=== PATIENT | male | born 1980 | race American Indian/Alaskan Native ===

== ENCOUNTER 2021-06-03 12:03 | Emergency (ER) | payer BC ==
--- NOTE | 2021-06-03 13:25 | Event Note ---
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 Further treatment and workup at subsequent clinical providers discretion. Patient/guardian urged not to elope from the ED as their condition may be serious if not clinically assessed and managed. Initial orders include: ro uri/vte/acs
[2021-06-03] MEDS ORDERED: ALBUTEROL 2.5 MG/3 ML NEBU IH ONE (13:27)
--- NOTE | 2021-06-03 13:27 | XRay Report ---
CHEST 2 VIEWS INDICATION / CLINICAL INFORMATION: cough. COMPARISON: None available. FINDINGS: SUPPORT DEVICES: None. HEART / MEDIASTINUM: No significant abnormality. LUNGS / PLEURA: No significant pulmonary or pleural abnormality. No pneumothorax. ADDITIONAL FINDINGS: No significant additional findings. IMPRESSION: 1. No active cardiopulmonary disease. Signer Name: Ramesh Nunez II, MD Signed: 06/03/2021 1:20 PM Workstation Name: [id number]
[2021-06-03 13:56] LABS: Basophils # (Auto) 0.1 K/mm3 (0.0-0.1); Basophils % (Auto) 0.7 % (0.0-1.8); Eosinophils # (Auto) 0.1 K/mm3 (0.0-0.4); Eosinophils % (Auto) 1.6 % (0.0-4.3); Hematocrit 46.5 % (35.5-45.6); Hemoglobin 15.6 gm/dl (11.8-15.2); Lymphocytes # (Auto) 2.1 K/mm3 (1.2-5.4); Lymphocytes % (Auto) 26.5 % (13.4-35.0); Mean Corpuscular HGB Conc 34 % (32-34); Mean Corpuscular Volume 96 fl (84-94); Monocytes # (Auto) 1.2 K/mm3 (0.0-0.8); Monocytes % (Auto) 14.9 % (0.0-7.3); Platelet Count 176 K/mm3 (140-440); Red Blood Count 4.85 M/mm3 (3.65-5.03); Red Cell Distribution Width 13.9 % (13.2-15.2)
[2021-06-03 14:06] LABS: INR 0.84 (0.87-1.13)
[2021-06-03 14:07] LABS: Partial Thromboplastin Time 30.7 Sec. (24.2-36.6)
[2021-06-03 14:10] LABS: Alanine Aminotransferase 36 units/L (7-56); Albumin 4.5 g/dL (3.9-5); BUN/Creatinine Ratio 9; Blood Urea Nitrogen 8 mg/dL (9-20); Calcium 9.8 mg/dL (8.4-10.2); Hemolysis Index 3
[2021-06-03 16:50] LABS: Mucus,Urine 3+ /HPF
[2021-06-03] MEDS ORDERED: IPRATROPIUM/ALBUTEROL SULFATE 3 ML AMPUL.NEB IH ONE (16:56)
[2021-06-03] MEDS ORDERED: predniSONE 20 MG TAB PO ONE (16:56)
[2021-06-03 16:59] LABS: Bilirubin,Urine NEG (Negative); Blood,Urine NEG (Negative); Color,Urine Amber (Yellow); Sperm,Urine FEW /HPF (NP); Urobilinogen,Urine < 2.0 mg/dL (<2.0)
--- NOTE | 2021-06-03 18:32 | Emergency Department Report ---
- General Chief Complaint: Dyspnea/Respdistress Stated Complaint: SENT BY [facility] FOR EVAL Time Seen by Provider: 06/03/21 13:24 Source: patient Mode of arrival: Ambulatory Limitations: No Limitations - History of Present Illness Initial Comments: 41-year-old male with a past medical history of PE/DVT diagnosed several years ago currently on Xarelto, smoker, and a childhood history of asthma presents to the hospital complaining of 4 days of mild headache, throat discomfort, headache, fever, and generalized body aches. Patient is unvaccinated for Covid. He was noted to have wheezing upon arrival and did receive some relief with nebs prior to my evaluation. - Related Data Previous Rx's Medication Instructions Recorded Last Taken Type ALBUTEROL NEB's [Proventil 0.083% 2.5 mg IH TID PRN #30 neb 06/03/21 Unknown Rx NEBS] Albuterol Sulfate [Proventil Hfa] 6.7 gm IH Q4HR PRN #1 inh 06/03/21 Unknown Rx Azithromycin [Zithromax Z-LORI] 1 dose PO DAILY 5 Days tab 06/03/21 Unknown Rx guaiFENesin/DEXTROMETHORPHAN 1 each PO BID PRN #20 tab 06/03/21 Unknown Rx [Mucinex DM ER 600-30 mg TAB] predniSONE [Deltasone] 40 mg PO QDAY 4 Days tab 06/03/21 Unknown Rx Allergies Allergy/AdvReac Type Severity Reaction Status Date / Time No Known Allergies Allergy Unverified 06/03/21 12:52 ED Review of Systems ROS: Stated complaint: SENT BY [facility] FOR EVAL Other details as noted in HPI Comment: All other systems reviewed and negative ED Past Medical Hx - Medications Home Medications: Home Medications Medication Instructions Recorded Confirmed Last Taken Type ALBUTEROL NEB's [Proventil 0.083% 2.5 mg IH TID PRN #30 neb 06/03/21 Unknown Rx NEBS] Albuterol Sulfate [Proventil Hfa] 6.7 gm IH Q4HR PRN #1 inh 06/03/21 Unknown Rx Azithromycin [Zithromax Z-LORI] 1 dose PO DAILY 5 Days tab 06/03/21 Unknown Rx guaiFENesin/DEXTROMETHORPHAN 1 each PO BID PRN #20 tab 06/03/21 Unknown Rx [Mucinex DM ER 600-30 mg TAB] predniSONE [Deltasone] 40 mg PO QDAY 4 Days tab 06/03/21 Unknown Rx ED Physical Exam - General Limitations: No Limitations - Other Other exam information: General: No acute distress Head: Atraumatic Eyes: normal appearance Neck: Normal appearance, no midline tenderness Chest: Residual mild wheezing right base CV: Regular rate and rhythm Abdomen: Soft, normal bowel sounds, nontender, nondistended, no rebound or guarding Back: Normal inspection Extremity: Normal inspection, full range of motion, no calf tenderness or leg edema Neuro: Alert O x 3, no facial asymmetry, speech clear, no gross motor sensory deficit Psych: Appropriate behavior Skin: No rash ED Course Vital Signs 06/03/21 06/03/21 06/03/21 12:56 12:58 13:50 Temperature 98.5 F Pulse Rate 99 H Pulse Rate [ 84 Bilateral] Respiratory 18 Rate Respiratory 16 Rate [Bilateral ] Blood Pressure 140/86 [Right] O2 Sat by Pulse 96 Oximetry ED Medical Decision Making - Lab Data Result diagrams: 06/03/21 13:27 06/03/21 13:27 Lab Results 06/03/21 06/03/21 06/03/21 Range/Units 13:27 13:27 13:27 WBC 8.0 (4.5-11.0) K/mm3 RBC 4.85 (3.65-5.03) M/mm3 Hgb 15.6 H (11.8-15.2) gm/dl Hct 46.5 H (35.5-45.6) % MCV 96 H (84-94) fl MCH 32 (28-32) pg MCHC 34 (32-34) % RDW 13.9 (13.2-15.2) % Plt Count 176 (140-440) K/mm3 Lymph % (Auto) 26.5 (13.4-35.0) % Stephenson % (Auto) 14.9 H (0.0-7.3) % Eos % (Auto) 1.6 (0.0-4.3) % Baso % (Auto) 0.7 (0.0-1.8) % Lymph # (Auto) 2.1 (1.2-5.4) K/mm3 Stephenson # (Auto) 1.2 H (0.0-0.8) K/mm3 Eos # (Auto) 0.1 (0.0-0.4) K/mm3 Baso # (Auto) 0.1 (0.0-0.1) K/mm3 Seg Neutrophils % 56.3 (40.0-70.0) % Seg Neutrophils # 4.5 (1.8-7.7) K/mm3 PT 12.5 (12.2-14.9) Sec. INR 0.84 L (0.87-1.13) APTT 30.7 (24.2-36.6) Sec. Sodium 135 L (137-145) mmol/L Potassium 4.1 (3.6-5.0) mmol/L Chloride 96.9 L (98-107) mmol/L Carbon Dioxide 24 (22-30) mmol/L Anion Gap 18 mmol/L BUN 8 L (9-20) mg/dL Creatinine 0.9 (0.8-1.3) mg/dL Estimated GFR > 60 ml/min BUN/Creatinine Ratio 9 % Glucose 121 H (75-100) mg/dL Calcium 9.8 (8.4-10.2) mg/dL Total Bilirubin 0.50 (0.1-1.2) mg/dL AST 38 (5-40) units/L ALT 36 (7-56) units/L Alkaline Phosphatase 67 (35-129) units/L Troponin T < 0.010 (0.00-0.029) ng/mL Total Protein 8.5 H (6.3-8.2) g/dL Albumin 4.5 (3.9-5) g/dL Albumin/Globulin Ratio 1.1 % Urine Color (Yellow) Urine Turbidity (Clear) Urine pH (5.0-7.0) Ur Specific [place] (1.003-1.030) Urine Protein (Negative) mg/dL Urine Glucose (UA) (Negative) mg/dL Urine Ketones (Negative) mg/dL Urine Blood (Negative) Urine Nitrite (Negative) Ur Reducing Substances Urine Bilirubin (Negative) Urine Ictotest Urine Urobilinogen (<2.0) mg/dL Ur Leukocyte Esterase (Negative) Urine WBC (Auto) (0.0-6.0) /HPF Urine RBC (Auto) (0.0-6.0) /HPF U Epithel Cells (Auto) (0-13.0) /HPF Urine Mucus /HPF Urine Sperm ([employer]) /HPF Influenza A (Rapid) (Negative) Influenza B (Rapid) (Negative) 06/03/21 06/03/21 Range/Units Unknown Unknown WBC (4.5-11.0) K/mm3 RBC (3.65-5.03) M/mm3 Hgb (11.8-15.2) gm/dl Hct (35.5-45.6) % MCV (84-94) fl MCH (28-32) pg MCHC (32-34) % RDW (13.2-15.2) % Plt Count (140-440) K/mm3 Lymph % (Auto) (13.4-35.0) % Stephenson % (Auto) (0.0-7.3) % Eos % (Auto) (0.0-4.3) % Baso % (Auto) (0.0-1.8) % Lymph # (Auto) (1.2-5.4) K/mm3 Stephenson # (Auto) (0.0-0.8) K/mm3 Eos # (Auto) (0.0-0.4) K/mm3 Baso # (Auto) (0.0-0.1) K/mm3 Seg Neutrophils % (40.0-70.0) % Seg Neutrophils # (1.8-7.7) K/mm3 PT (12.2-14.9) Sec. INR (0.87-1.13) APTT (24.2-36.6) Sec. Sodium (137-145) mmol/L Potassium (3.6-5.0) mmol/L Chloride (98-107) mmol/L Carbon Dioxide (22-30) mmol/L Anion Gap mmol/L BUN (9-20) mg/dL Creatinine (0.8-1.3) mg/dL Estimated GFR ml/min BUN/Creatinine Ratio % Glucose (75-100) mg/dL Calcium (8.4-10.2) mg/dL Total Bilirubin (0.1-1.2) mg/dL AST (5-40) units/L ALT (7-56) units/L Alkaline Phosphatase (35-129) units/L Troponin T (0.00-0.029) ng/mL Total Protein (6.3-8.2) g/dL Albumin (3.9-5) g/dL Albumin/Globulin Ratio % Urine Color Ayesha (Yellow) Urine Turbidity Clear (Clear) Urine pH 5.0 (5.0-7.0) Ur Specific [place] 1.032 H (1.003-1.030) Urine Protein 100 mg/dl (Negative) mg/dL Urine Glucose (UA) Neg (Negative) mg/dL Urine Ketones Tr (Negative) mg/dL Urine Blood Neg (Negative) Urine Nitrite Neg (Negative) Ur Reducing Substances Not Reportable Urine Bilirubin Neg (Negative) Urine Ictotest Not Reportable Urine Urobilinogen < 2.0 (<2.0) mg/dL Ur Leukocyte Esterase Neg (Negative) Urine WBC (Auto) 4.0 (0.0-6.0) /HPF Urine RBC (Auto) 2.0 (0.0-6.0) /HPF U Epithel Cells (Auto) 5.0 (0-13.0) /HPF Urine Mucus 3+ /HPF Urine Sperm Few ([employer]) /HPF Influenza A (Rapid) Negative (Negative) Influenza B (Rapid) Negative (Negative) - EKG Data -: EKG Interpreted by Sc EKG shows normal: sinus rhythm, ST-T waves (No STEMI) Rate: tachycardia (101) - Radiology Data Radiology results: report reviewed (Chest x-ray: No acute finding) - Medical Decision Making 41-year-old male presents to the hospital with viral symptoms. No signs of hypoxia, infiltrate, and flu test negative. Patient is unvaccinated with Covid pending test with results available tomorrow. He will be treated symptomatically for viral infection/bronchitis with wheezing, and with a Z-Lori. Patient received bronchodilators and steroids in the ED with improvement in symptoms Critical Care Time: No Critical care attestation.: If time is entered above; I have spent that time in minutes in the direct care of this critically ill patient, excluding procedure time. ED Disposition Clinical Impression: Viral syndrome, Acute bronchitis Disposition: 01 HOME / SELF CARE / HOMELESS Is pt being admited?: No Does the pt Need Aspirin: No Condition: Stable Instructions: Viral Illness, Adult, How to Use a Metered Dose Inhaler, Acute Bronchitis (ED), Acute Bronchitis, Adult, Steps to Quit Smoking Additional Instructions: Take the medication as prescribed. Follow-up with your doctor or doctor/clinic provided. Return if symptoms worsen as indicated by your discharge instructions. Follow up regarding your outpatient covid test Prescriptions: predniSONE [Deltasone] 40 mg PO QDAY 4 Days tab guaiFENesin/DEXTROMETHORPHAN [Mucinex DM ER 600-30 mg TAB] 1 each PO BID PRN #20 tab PRN Reason: Cough ALBUTEROL NEB's [Proventil 0.083% NEBS] 2.5 mg IH TID PRN #30 neb PRN Reason: Wheezing Albuterol Sulfate [Proventil Hfa] 6.7 gm IH Q4HR PRN #1 inh PRN Reason: Wheezing Azithromycin [Zithromax Z-LORI] 1 dose PO DAILY 5 Days tab Referrals: PRIMARY CARE, [Primary Care Provider] - 3-[address] [facility] [Provider Group] - 3-5 Days Forms: Work/School Release Form(ED) Time of Disposition: 18:33
[2021-06-03 19:04] VITALS: BP 140/80
--- NOTE | 2021-06-04 10:26 | Electrocardiograph Report ---
[facility] Test Date: 2021-06-03 Test Time: 16:15:31 Pat Name: MONIQUE PHILLIPS Department: Room: Gender: M Biological Chemist: NW : 1980 Requested By: RUBI NICKERSON Order Number: [id number] Reading MD: Leo Paiz Measurements Intervals [place] Rate: 101 P: 62 PA: 171 QRS: 57 QRSD: 80 T: 56 QT: 328 QTc: 425 Interpretive Statements Sinus tachycardia No previous ECG available for comparison Electronically Signed On 06-04-2021 10:25:43 EST by Leo Paiz
== END 2021-06-03 19:05 | disposition home or self-care (01) ==
LOC: ED 12:03
DX: B34.9 Viral infection, unspecified (principal); J20.9 Acute bronchitis, unspecified
CPT/HCPCS: 36415; 71046; 80053; 81001; 84484; 85025; 85610; 85730; 87400; 93005; 93010; 94640; 94644; 99284